=== PATIENT | male | born 2000 | race Caucasian/White ===

== ENCOUNTER 2021-08-09 10:09 | Emergency (ER) | payer BC, OTHER ==
[~2021-08-09] VITALS: Ht 175.3 cm; Wt 79.4 kg
[~2021-08-09 10:09] MED LIST: FLUT1DIS INH; LORA10TA68 PO
[2021-08-09 10:14] VITALS: BP_SYST 153
--- NOTE | 2021-08-09 10:20 | NUR ---
AMBULATED TO BED 7
--- NOTE | 2021-08-09 10:22 | NUR ---
ER DR. DIAMOND AT THE BEDSIDE EXAMINING PT
--- NOTE | 2021-08-09 10:25 | NUR ---
PT CAME IN FROM HOME C/O ABD PAIN, LOWER BACK PAIN, UNABLE TO VOID AND UNABLE TO HAVE BM SINCE THIS AM. PT REPORTS HAVING A SMALL, HARD BM EARLY THIS AM AND YESTERDAY BUT WOKE UP WITH PAIN THIS AM. ABD DISTENDED AND HARD TO TOUCH. PT DENIES HX. PT IS AMBULATORY, AAOX4, V/S STABLE
--- NOTE | 2021-08-09 10:30 | NUR ---
# 16 FR Bueno catheter with use of sterile technique. Immediate return of 10 cc UNA YELLOW, CLOUDY urine noted. Bedside drainage bag placed below level of bladder. Urine sample collected and sent to lab. Pt tolerated procedure WELL. Patient unable to toilet self.
--- NOTE | 2021-08-09 10:55 | NUR ---
# 20 gauge angiocath placed to LAC. Use of asceptic technique. Opsite placed over site. Blood return noted. Blood for lab drawn from site. Flushed with 10 cc of normal saline. No evidence of infiltration noted. Patient tolerated well.
[2021-08-09 10:56] LABS: BILIRUBIN,URINE 1+ (NEGATIVE); BLOOD, URINE 3+ (NEGATIVE); COLOR,URINE BROWN (YELLOW); GLUCOSE,URINE NEGATIVE (NEGATIVE); KETONES,URINE NEGATIVE (NEGATIVE); LEUKOCYTE ESTERASE ,URINE NEGATIVE (NEGATIVE); NITRITE, URINE NEGATIVE (NEGATIVE); PROTEIN URINE 1+ (NEGATIVE)
[2021-08-09] MEDS ORDERED: NACL 0.9% 1,000 ML IV ONE (11:00)
[2021-08-09] MEDS ORDERED: KETOROLAC TROMETHAMINE 30 MG VIAL IVP ONE (11:00)
--- NOTE | 2021-08-09 11:10 | NUR ---
Patient transported to radiology via GURNEY, accompanied by STAFF.
[2021-08-09 11:12] LABS: CLARITY/URINE SLIGHTLY CLOUDY (CLEAR)
[2021-08-09 11:15] LABS: BACTERIA,URINE None Seen /HPF (None Seen); RBC,URINE >100 /HPF (0-3); WBC,URINE 0-3 /HPF (0-3)
[2021-08-09 11:19] LABS: BASOPHILS # (AUTO) 0.1 K/uL (0.0-0.2); BASOPHILS % (AUTO) 0.4 % (0.0-2.0); EOSINOPHILS % (AUTO) 0.3 % (0.0-4.0); HEMATOCRIT 48.3 % (36-54); HEMOGLOBIN 16.3 g/dL (14.0-18.0); LYMPHOCYTES # (AUTO) 1.4 K/uL (1.0-5.5); LYMPHOCYTES % (AUTO) 8.5 % (20.5-51.5); MEAN CORPUSCULAR HEMOGLOBIN 29 pg (27-31); MEAN CORPUSCULAR HGB CONC 34 % (32-36); MEAN CORPUSCULAR VOLUME 86 fL (79.0-98.0); MONOCYTES # (AUTO) 0.6 K/uL (0.0-1.0); MONOCYTES % (AUTO) 3.8 % (1.7-9.3); NEUTROPHILS # (AUTO) 13.9 K/uL (1.8-7.7); PLATELET COUNT (AUTO) 159 K/uL (130-430); RED BLOOD CELL COUNT(AUTO) 5.62 MIL/uL (4.2-6.2); RED CELL DISTRIBUTION WIDTH 12.9 % (9.0-15.0)
[2021-08-09] MEDS ORDERED: ONDANSETRON HCL 4 MG/2 ML VIAL ONE (11:35)
[2021-08-09] MEDS ORDERED: MORPHINE 4 MG INJ. 4 MG/ML VIAL ONE (11:37)
[2021-08-09 11:38] LABS: CALCIUM 9.3 mg/dL (8.4-11.0); CREATININE 1.12 mg/dL (0.55-1.30); POTASSIUM 3.3 mmol/L (3.5-5.1)
--- NOTE | 2021-08-09 11:45 | NUR ---
PT HAD EPISODE OF NAUSEA FOLLOWED BY EMESIS X1, YELLOW. MADE AWARE
[2021-08-09 11:49] LABS: ALBUMIN 4.5 g/dL (3.4-4.8); TOTAL BILIRUBIN 0.4 mg/dL (0.0-1.0)
[2021-08-09] MEDS ORDERED: MORPHINE 4 MG INJ. 4 MG/ML VIAL IVP ONE ×2 (12:00→12:45)
[2021-08-09] MEDS ORDERED: ONDANSETRON HCL 4 MG/2 ML VIAL IVP ONE (12:00)
--- NOTE | 2021-08-09 12:30 | NUR ---
PT RESTING IN BED, AAOX4, V/S STABLE, NO DISTRESS NOTED
[2021-08-09] MEDS ORDERED: PANTOPRAZOLE SODIUM 40 MG/VIAL (PROTONIX) IVP ONE (12:45)
[2021-08-09] MEDS ORDERED: FAMO40TA7 PO (12:56)
[2021-08-09 13:14] VITALS: BP_SYST 148
--- NOTE | 2021-08-09 13:16 | NUR ---
Patient given written and verbal discharge instructions and verbalizes understanding. ER MD discussed with patient the results and treatment provided. Patient in stable condition. ID arm band removed. IV catheter removed intact and dressing applied, no active bleeding. Rx of FAMOTIDINE given. Patient educated on pain management and to follow up with PMD. Pain Scale 0/10. Opportunity for questions provided and answered. Medication side effect fact sheet provided.
== END 2021-08-09 13:16 | disposition home or self-care (01) ==
LOC: SED 10:09
DX: K29.70 Gastritis, unspecified, without bleeding (principal); J45.909 Unspecified asthma, uncomplicated; Z79.899 Other long term (current) drug therapy; Z20.822 Contact with and (suspected) exposure to COVID-19
CPT/HCPCS: 36415; 74176; 76376; 80053; 81000; 85025; 87426; 96361; 96374; 96375; 96376; 99284; C9113; J1885; J2270; J2405; J7030

== ENCOUNTER 2021-08-14 09:44 | Emergency (ER) | payer BC, SELFPAY ==
[~2021-08-14] VITALS: Ht 175.3 cm; Wt 79.4 kg
[~2021-08-14 09:44] MED LIST changes: +FAMO40TA7 PO
[2021-08-14 09:50] VITALS: BP_SYST 150
--- NOTE | 2021-08-14 09:50 | NUR ---
Placed in room 3 . Placed on cardiac specialist, blood pressure machine and pulse oximeter. To gown for exam. Side rails up.
--- NOTE | 2021-08-14 10:00 | NUR ---
PT BIB FATHER FROM HOME C/O ABD PAIN STARTING THIS AM. PT REPORTS HE ATE A LARGE BURRITO LAST NIGHT AND WOKE UP IN PAIN. DENIES N/V. STATES HE HAD A NORAMAL BM YESTERDAY. VOIDING NORMALLY. PT IS AMBULATORY, AAOX4, V/S STABLE
--- NOTE | 2021-08-14 10:15 | NUR ---
ER DR. SCHUSTER AT THE BEDSIDE EXAMINING PT
--- NOTE | 2021-08-14 10:30 | NUR ---
# 20 gauge angiocath placed to RAC. Use of asceptic technique. Opsite placed over site. Blood return noted. Blood for lab drawn from site. Flushed with 10 cc of normal saline. No evidence of infiltration noted. Patient tolerated well.
--- NOTE | 2021-08-14 10:40 | NUR ---
Patient transported to radiology via STAFF, accompanied by ABRAHAM.
[2021-08-14] MEDS: KETOROLAC TROMETHAMINE 30 MG VIAL IVP ONE (11:00)
[2021-08-14 11:01] LABS: BASOPHILS % (AUTO) 0.4 % (0.0-2.0); EOSINOPHILS # (AUTO) 0.1 K/uL (0.0-0.4); EOSINOPHILS % (AUTO) 0.6 % (0.0-4.0); HEMATOCRIT 46.2 % (36-54); HEMOGLOBIN 15.8 g/dL (14.0-18.0); LYMPHOCYTES # (AUTO) 1.2 K/uL (1.0-5.5); LYMPHOCYTES % (AUTO) 9.2 % (20.5-51.5); MEAN CORPUSCULAR HEMOGLOBIN 29 pg (27-31); MEAN CORPUSCULAR HGB CONC 34 % (32-36); MEAN CORPUSCULAR VOLUME 85 fL (79.0-98.0); MONOCYTES # (AUTO) 0.8 K/uL (0.0-1.0); MONOCYTES % (AUTO) 6.4 % (1.7-9.3); NEUTROPHILS # (AUTO) 10.7 K/uL (1.8-7.7); NEUTROPHILS % (AUTO) 83.4 % (40.0-70.0); PLATELET COUNT (AUTO) 161 K/uL (130-430); RED BLOOD CELL COUNT(AUTO) 5.45 MIL/uL (4.2-6.2); RED CELL DISTRIBUTION WIDTH 12.7 % (9.0-15.0); WHITE BLOOD COUNT (AUTO) 12.8 K/uL (4.8-10.8)
[2021-08-14 11:23] LABS: BILIRUBIN,URINE NEGATIVE (NEGATIVE); BLOOD, URINE 2+ (NEGATIVE); CLARITY/URINE CLEAR (CLEAR); COLOR,URINE YELLOW (YELLOW); GLUCOSE,URINE NEGATIVE (NEGATIVE); KETONES,URINE 1+ (NEGATIVE); LEUKOCYTE ESTERASE ,URINE NEGATIVE (NEGATIVE); NITRITE, URINE NEGATIVE (NEGATIVE); PH,URINE 8.5 (5.0-8.0); PROTEIN URINE NEGATIVE (NEGATIVE); UROBILINOGEN,URINE 0.2 (0.2-1.0)
[2021-08-14 11:54] LABS: CHLORIDE 97 mmol/L (98-107); POTASSIUM 3.3 mmol/L (3.5-5.1); SODIUM SERUM 136 mmol/L (136-145)
[2021-08-14 11:55] LABS: ANION GAP 15 (5-15); CALCIUM 9.7 mg/dL (8.4-11.0); CREATININE 1.29 mg/dL (0.55-1.30); GFR AFRICAN AMERICAN 89 mL/min (>90); GLUCOSE 95 mg/dL (70-99); TOTAL BILIRUBIN 0.6 mg/dL (0.0-1.0); UREA NITROGEN, BLOOD 14 mg/dL (8-21)
[2021-08-14 11:56] LABS: ALANINE AMINOTRANSFERASE 60 U/L (12-78); ALBUMIN 4.4 g/dL (3.4-4.8); AMYLASE 52 U/L (0-100); ASPARTATE AMINOTRANSFERASE 23 U/L (10-37); C-REACTIVE PROTEIN QUANT < 0.2 mg/dL (0-0.5); LIPASE 174 U/L (73-393)
[2021-08-14] MEDS ORDERED: HYDR-3917 PO (12:03)
[2021-08-14] MEDS ORDERED: IBUP-1971 PO (12:03)
[2021-08-14 12:26] VITALS: BP_SYST 150
--- NOTE | 2021-08-14 12:27 | NUR ---
Patient given written and verbal discharge instructions and verbalizes understanding. ER MD discussed with patient the results and treatment provided. Patient in stable condition. ID arm band removed. IV catheter removed intact and dressing applied, no active bleeding. Rx of NORCO AND IBUPROFEN given. Patient educated on pain management and to follow up with PMD. Pain Scale 0/10. Opportunity for questions provided and answered. Medication side effect fact sheet provided.
[2021-08-14 12:36] LABS: BACTERIA,URINE FEW /HPF (None Seen); MUCUS,URINE None Seen /LPF (None Seen); URINE AMORPHOUS PHOSPHATES 1+ /HPF (None Seen); WBC,URINE 0-3 /HPF (0-3)
== END 2021-08-14 12:26 | disposition home or self-care (01) ==
LOC: SED 09:44
DX: N23 Unspecified renal colic (principal); J45.909 Unspecified asthma, uncomplicated; Z79.899 Other long term (current) drug therapy
CPT/HCPCS: 36415; 74177; 76376; 80053; 81000; 81003; 82150; 83605; 83690; 85025; 86140; 96374; 99285; J1885; Q9967